=== PATIENT | female | born 1955 | race Two or more races ===

== ENCOUNTER 2022-11-04 06:33 | Day surgery (SDC) | payer OTHER | END 2022-11-04 11:30 | disposition home or self-care (01) | LOC: AMB-ENDOS 06:33 | PROVIDERS: ATTEND Surgery | DX: D12.4 Benign neoplasm of descending colon (principal); D12.0 Benign neoplasm of cecum; K57.30 Diverticulosis of large intestine without perforation or abscess without bleeding; K92.1 Melena; Z20.822 Contact with and (suspected) exposure to COVID-19 ==